=== PATIENT | male | born 1955 ===

== ENCOUNTER 2017-08-03 15:16 | Emergency (ER) | payer OTHER ==
[2017-08-03 15:54] VITALS: BP 138/90; PULSE 78; RESP 18; TEMP 98.1; O2SAT 95
[2017-08-03 17:21] LABS: URINE BACTERIA RARE (<OCC); URINE BILIRUBIN NEGATIVE (NEGATIVE); URINE BLOOD NEGATIVE (NEGATIVE); URINE CLARITY Clear (Clear); URINE COLOR Yellow (YELLOW); URINE GLUCOSE (UA) 3+ mg/dL (Normal); URINE LEUKOCYTE ESTERASE NEG Leu/uL (Negative); URINE NITRATE NEGATIVE (NEGATIVE); URINE PROTEIN 1+ mg/dL (NEGATIVE); URINE UROBILINOGEN NORMAL mg/dL (0.2-1.0)
--- NOTE | 2017-08-03 17:46 | C.PDOC ---
History Of Present Illness 61 year old male presents to the ED for with complaint of dysuria which began 2 days ago. Patient also reports experiencing some rectal pain with urination. Patient admits he is sexually active; he has been having unprotected intercourse with a new partner "every night." Patient denies fever, chills, nausea, vomiting, abdominal pain, testicular pain, penile discharge. Time Seen by Provider: 08/03/17 16:29 Chief Complaint (Nursing): Male Genitourinary History Per: Patient History/Exam Limitations: no limitations Onset/Duration Of Symptoms: Days (2) Current Symptoms Are (Timing): Still Present Quality Of Discomfort: "Pain" Associated Symptoms: Urinary Symptoms (dysuria ). denies: Fever, Chills, Nausea , Vomiting Additional History Per: Patient Past Medical History Reviewed: Historical Data, Nursing Documentation, Vital Signs Vital Signs: Last Vital Signs Temp 98.1 F 08/03/17 15:50 Pulse 78 08/03/17 15:50 Resp 18 08/03/17 15:50 BP 138/90 08/03/17 15:50 Pulse Ox 95 08/03/17 22:56 - Medical History PMH: Diabetes, HTN, Hypercholesterolemia Surgical History: No Surg Hx Family History: States: Unknown Family Hx - Social History Hx Tobacco Use: No Hx Alcohol Use: No Hx Substance Use: No - Immunization History Hx Tetanus Toxoid Vaccination: No Hx Influenza Vaccination: No Hx Pneumococcal Vaccination: No Review Of Systems Constitutional: Negative for: Fever, Chills Gastrointestinal: Positive for: Rectal Pain. Negative for: Nausea, Vomiting, Abdominal Pain Genitourinary: Positive for: Dysuria. 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 Rocephin IM and Zithromax PO adminsitered. On reassessment, patient is resting comfortably, showing no signs of distress and is stable for discharge. Patient is advised to f/u with his PMD for further evaluation and/or return to the ED if symptoms persist or worsen. Case discussed with Dr Reynoso, agreed upon plan and treatment. Disposition - Disposition Referrals: Naeem Osman MD [Staff Provider] - Disposition: HOME/ ROUTINE Disposition Time: 17:46 Condition: STABLE Additional Instructions: Follow up with your primary medical doctor or clinic in 2-5 days for further evaluation. Take medications as prescribed. Return to the emergency department at any time if symptoms persist or worsen. Prescriptions: Ciprofloxacin HCl [Cipro] 500 mg PO BID #14 tab Instructions: Urethritis Forms: [facility] (Frisian) - Clinical Impression Clinical Impression: Urethritis - PA / LEATHER STAKER / Resident Statement MD/DO has reviewed & agrees with the documentation as recorded. - Scribe Statement The provider has reviewed the documentation as recorded by the Scribe All medical record entries made by the Scribe were at my direction and personally dictated by me. I have reviewed the chart and agree that the record accurately reflects my personal performance of the history, physical exam, medical decision making, and the department course for this patient. I have also personally directed, reviewed, and agree with the discharge instructions and disposition.
[2017-08-03] MEDS ORDERED: cefTRIAXone (Rocephin) 250 mg Inj IM STA (18:00)
== END 2017-08-03 18:21 | disposition home or self-care (01) ==
LOC: C.ER 15:16
DX: N34.2 Other urethritis (principal); E11.9 Type 2 diabetes mellitus without complications
CPT/HCPCS: 81001; 82948; 87086; 87491; 87591; 96372; 99283; J0696